=== PATIENT | male | born 1950 | race Hispanic/Latino ===

== ENCOUNTER 2017-04-29 14:06 | Emergency (ER) | payer OTHER ==
[~2017-04-29] VITALS: Ht 157.5 cm; Wt 56.7 kg
[2017-04-29] MEDS ORDERED: INVOKANA PO (14:18)
[2017-04-29] MEDS ORDERED: METFORMIN HCL1000 MG PO (14:18)
[2017-04-29] MEDS ORDERED: LISINOPRIL5 MG PO (14:18)
[2017-04-29] MEDS ORDERED: GLIPIZIDE5 MG PO (14:18)
[2017-04-29] MEDS ORDERED: SIMVASTATIN40 MG (14:18)
--- NOTE | 2017-04-29 15:16 | Diagnostic Imaging Report ---
EXAMINATION: Chest, CHEST 2 VIEWS INDICATION: Pain. COMPARISON: None FINDINGS: LINES: None. Heart: Normal cardiac silhouette. Vascular: The pulmonary vasculature is within normal limits. Atherosclerotic calcifications of the aortic arch. Mediastinum: No mediastinal, hilar, or axillary mass or lymphadenopathy. Lungs: No parenchymal mass. No focal consolidation. Pleura: No pleural effusion. No pneumothorax. Bones: No acute osseous abnormality. Degenerative changes of the thoracic spine. Soft tissues: Normal. Impression: No acute radiographic abnormality. Signed by: Dr. Ramiro Molina M.D. on 04/29/2017 3:13 PM
[2017-04-29 15:19] LABS: BASOPHILS % 0.5 % (0.0-1.0); EOSINOPHILS # (AUTO) 0.1 (0.0-0.4); EOSINOPHILS % 1.8 % (0.0-6.0); HEMATOCRIT 44.1 % (38.2-49.6); HEMOGLOBIN 15.1 g/dL (14.0-18.0); LYMPHOCYTES # (AUTO) 3.2 (1.0-3.2); LYMPHOCYTES % 40.5 % (18.0-39.1); MEAN CORPUSCULAR HEMOGLOBIN 31.7 pg (28-32); MEAN CORPUSCULAR HGB CONC 34.2 g/dL (31-35); MEAN CORPUSCULAR VOLUME 92.5 fL (81-99); MONOCYTES # (AUTO) 0.5 (0.2-0.8); MONOCYTES % 6.4 % (4.4-11.3); NEUTROPHILS % 50.7 % (38.7-80.0); PLATELET COUNT 234 x10e3/uL (140-360); RED BLOOD COUNT 4.77 x10e6/uL (4.3-5.7); RED CELL DISTRIBUTION WIDTH 12.1 % (11.7-14.4)
[2017-04-29 15:31] LABS: INR 0.81; PARTIAL THROMBOPLASTIN TIME 26.7 seconds (23.8-35.5); PROTHROMBIN TIME 11.6 seconds (11.9-14.5)
[2017-04-29 15:40] LABS: BLOOD UREA NITROGEN 19 mg/dL (7-26); BUN/CREATININE RATIO 22 (6-25); CALCIUM 9.2 mg/dL (8.4-10.2); CARBON DIOXIDE 25 mmol/L (22-29); CHLORIDE 104 mmol/L (98-107); CREATINE KINASE 59 IU/L (30-200); CREATININE, SERUM 0.85 mg/dL (0.72-1.25); EST GLOMERULAR FILTRATION RATE > 60 ML/MIN (60-); GLUCOSE 145 mg/dL (74-118); SODIUM 139 mmol/L (136-145)
[2017-04-29] MEDS ORDERED: DEXAMETHASONE SOD PHOS INJ 4 MG/ML VIAL IV ONE (15:45)
[2017-04-29 15:48] LABS: TROPONIN I 0.003 ng/mL (0-0.300)
[2017-04-29 16:30] VITALS: BP 112/73
--- NOTE | 2017-04-29 16:34 | Diagnostic Imaging Report ---
History: Left arm numbness Comparison studies: None Technique: Axial images were obtained from the skull base to the vertex. Coronal and sagittal reconstructions obtained from the axial data. Findings: Scalp/skull: No abnormalities. No fractures, blastic or lytic lesions. Extra-axial spaces: No masses. No fluid collections. Brain sulci: Mildly prominent. Ventricles: Mild compensatory dilatation. No hydrocephalus. Parenchyma: No abnormal densities. No masses, hemorrhage, acute or chronic cortical vascular insults. Sellar/suprasellar region: No abnormalities Craniocervical junction: Patent foramen magnum. No Chiari one malformation. Atherosclerotic calcifications of the carotid siphons. IMPRESSION: No acute abnormalities. Particularly no hemorrhage or acute cortical infarcts. Findings discussed with Dr. Chun at 3:36 PM on 04/29/17. The preliminary report was reviewed and a final report issued by Dr. Baker neuroradiologist on 04/29/2017 at 4:30 PM. Signed by: Dr. Denise Baker M.D. on 04/29/2017 4:30 PM
--- NOTE | 2017-04-29 16:38 | Diagnostic Imaging Report ---
History: Left-sided neck pain Comparison studies: None Technique: Axial images were obtained through the cervical region. Coronal and sagittal images reconstructed from the axial data. Intravenous contrast: None Findings: Airway: Patent. Atlantoaxial articulation: Intact Alignment: Mild reversal of cervical lordosis centered at C4-C5. Cervicomedullary junction: No abnormalities. Patent foramen magnum. Soft tissues: No gross abnormalities. Vertebrae: No fractures, neoplasm or infection. Degenerative changes: C2-C3: Prominent degenerative changes in the right greater than left articular space in between the lateral masses of C1 and C2 with subchondral cyst, sclerosis and marginal osteophytes . C3-4: No spinal canal stenosis. Moderate left foraminal stenosis due to uncovertebral and facet hypertrophy. C4-5: Mild spinal canal stenosis due to posterior disc osteophyte complex. Degenerative intervertebral disc space height loss with endplate sclerosis. Moderate left foraminal stenosis due to uncovertebral joint hypertrophy. C5-6: Mild spinal canal stenosis due to posterior disc osteophyte complex. Moderate left foraminal stenosis due to uncal vertebral joint hypertrophy. C6-7: Patent spinal canal and foramina . C7-T1: Patent spinal canal and foramina . IMPRESSION: 1. No acute fracture or dislocation. 2. Mild degenerative cervical kyphosis centered at C4-C5 where there is severe degenerative intervertebral disc space height loss and endplate sclerosis. 3. Moderate left foraminal stenoses at C3-C4, C4-5, and C5-C6. Findings discussed with Dr. Chun at 3:36 PM on 04/29/17. The preliminary report was reviewed and a final report issued by Dr. Baker neuroradiologist on 04/29/2017 at 4:35 PM. Signed by: Dr. Denise Baker M.D. on 04/29/2017 4:35 PM
== END 2017-04-29 16:42 | disposition home or self-care (01) ==
LOC: ER 14:06
DX: M25.512 Pain in left shoulder (principal); M54.2 Cervicalgia; M54.12 Radiculopathy, cervical region; I10 Essential (primary) hypertension; E11.9 Type 2 diabetes mellitus without complications
CPT/HCPCS: 36415; 70450; 71020; 72125; 80048; 82550; 82553; 84484; 85025; 85610; 85730; 93005; 99284; J1100

== ENCOUNTER → 2017-08-18 | Outpatient (CLI) | payer OTHER ==
[~2017-08-18] MED LIST: GLIPIZIDE5 MG PO; INVOKANA PO; LISINOPRIL5 MG PO; METFORMIN HCL1000 MG PO; SIMVASTATIN40 MG
--- NOTE | 2017-08-18 14:29 | Diagnostic Imaging Report ---
History: Slurred speech for 2 weeks Comparison studies: CT cervical spine 04/29/2017 Technique: Sagittal T1, T2 and IR, axial T2 and axial gradient echo Intravenous contrast: None Findings: Alignment: Straightening of the cervical spine lordosis. No scoliosis. Cervicomedullary junction: No abnormalities. Patent foramen magnum. Soft tissues: Left paraspinal STIR hyperintensity at C3 and C4 Spinal cord: Normal in size and signal from the foramen magnum through T4 Vertebrae: Edema signal at C4-C5 endplates with associated disc degeneration. No fractures, infection or neoplasm. Degenerative changes: C2-C3: Disc degeneration with decreased T2 signal. Right uncinate process and facet hypertrophy results in no significant canal stenosis and mild right foraminal C3-C4: Disc degeneration with decreased T2 signal. Diffuse disc osteophyte complex, bilateral facet and bilateral uncinate process hypertrophy results in mild canal stenosis, mild right and moderate left foraminal narrowing. Trace of fluid is seen at the left facet joint C4-C5: Disc degeneration with decreased T2 signal and decreased intervertebral space. Modic type I changes. Diffuse disc osteophyte complex, bilateral uncinate process and facet hypertrophy results in mild canal stenosis, mild right and severe left foraminal narrowing. C5-C6: Disc degeneration with loss of T2 signal. Diffuse disc osteophyte complex and bilateral uncinate process hypertrophy results in mild canal stenosis, mild right and severe left foraminal narrowing C6-C7: Disc degeneration with loss of T2 signal. Patent canal and foramina C7-T1: No abnormalities. IMPRESSION: 1. Severe degenerative left foraminal narrowing at C4-5 and C5-6. Moderate left foraminal narrowing at C3-4. 2. Facet hypertrophy at the upper cervical spine with synovitis changes and periarticular inflammation at C3-4 on the left side. 3. Diffuse disc degeneration most significant at C4-5 with Modic type I changes at this level. 4. Mild multilevel degenerative stenosis at the upper cervical spine as described above. Signed by: DR Jigar Root M.D. on 08/18/2017 2:26 PM
--- NOTE | 2017-08-18 14:38 | Diagnostic Imaging Report ---
History: Slurred speech Comparison studies: None Technique: Sagittal T2; axial DWI, FLAIR, MPGR, T1, Coronal FLAIR. Intravenous contrast: None Findings: Scalp: Normal in signal . No masses . Bone marrow: Normal in signal intensity. Extra-axial: No masses, no fluid collections. Brain sulci: Appropriate for age. Ventricles: Normal in size . No hydrocephalus . Parenchyma: Scattered small T2/flair hyperintensities of the periventricular and the white matter. Focal gliosis at the right orbitofrontal gyrus, secondary to remote insult No masses, hemorrhage, acute or chronic vascular insults. Suprasellar region: No abnormalities. Craniocervical junction: No abnormalities. Patent foramen magnum. No Chiari one malformation. Vessels: Normal flow-voids in the arteries and sinuses. IMPRESSION: 1. No acute intracranial abnormalities. 2. Mild chronic microvascular ischemic changes of the white matter. Signed by: DR Jigar Root M.D. on 08/18/2017 2:34 PM
== END ==
LOC: CARD 09:49
PROVIDERS: ATTEND Psychiatry & Neurology Clinical Neurophysiology
DX: M54.12 Radiculopathy, cervical region (principal); G45.1 Carotid artery syndrome (hemispheric)
CPT/HCPCS: 70551; 72141; 93880

== ENCOUNTER → 2020-04-13 | Day surgery (SDC) | payer MEDICARE, OTHER ==
[2020-04-08 07:32] LABS: BASOPHILS % 0.4 % (0.0-1.0); EOSINOPHILS # (AUTO) 0.2 (0.0-0.4); EOSINOPHILS % 1.9 % (0.0-6.0); HEMOGLOBIN 14.2 g/dL (14.0-18.0); LYMPHOCYTES # (AUTO) 3.4 (1.0-3.2); LYMPHOCYTES % 43.4 % (18.0-39.1); MEAN CORPUSCULAR HGB CONC 33.8 g/dL (31-35); MEAN CORPUSCULAR VOLUME 91.7 fL (81-99); MONOCYTES # (AUTO) 0.7 (0.2-0.8); MONOCYTES % 9.4 % (4.4-11.3); NEUTROPHILS # (AUTO) 3.5 (2.1-6.9); NEUTROPHILS % 44.6 % (38.7-80.0); PLATELET COUNT 228 x10e3/uL (140-360); RED BLOOD COUNT 4.58 x10e6/uL (4.3-5.7); RED CELL DISTRIBUTION WIDTH 12.2 % (11.7-14.4)
[~2020-04-13] MED LIST changes: +FENTANYL CITRATE/PF 100MCG/2 ML INJ ONE; +HYOSCYAMINE 0.125 MG TAB ONE; +INSULIN REGULAR, HUMAN 100 UNIT/1 ML 3ML VIAL ONE; +LIDOCAINE HCL 2% LOCAL INJ 5 ML SDV VIAL INJ ONE; +LIPITOR10 MG PO; +MIDAZOLAM HCL 2 MG/2 ML VIAL ONE; +PANTOPRAZOLE 40 MG 10ML VIAL ONE; +PROPOFOL IV EMULSION 10 MG/ML 20 ML VIAL ONE
[2020-04-13 15:50] VITALS: BP 117/69
[2020-04-13 17:32] LABS: WBC,FECAL (FECAL LACTOFERRIN) NEGATIVE (NEGATIVE)
[2020-04-14 13:26] LABS: C DIFFICILE TOXIN A&B AMP PROB NEGATIVE (NEGATIVE)
[2020-04-16 06:11] LABS: ENDOMYSIAL ANTIBODIES, IGA Negative (Negative)
== END ==
LOC: OR 11:59
PROVIDERS: ATTEND Internal Medicine Gastroenterology
DX: K51.50 Left sided colitis without complications (principal); D12.5 Benign neoplasm of sigmoid colon; K25.9 Gastric ulcer, unspecified as acute or chronic, without hemorrhage or perforation; K29.70 Gastritis, unspecified, without bleeding; K62.89 Other specified diseases of anus and rectum; K20.90 Esophagitis, unspecified without bleeding; B96.81 Helicobacter pylori [H. pylori] as the cause of diseases classified elsewhere; E11.9 Type 2 diabetes mellitus without complications; I10 Essential (primary) hypertension; Z01.810 Encounter for preprocedural cardiovascular examination; Z01.812 Encounter for preprocedural laboratory examination; Z20.828 Contact with and (suspected) exposure to other viral communicable diseases; Z79.84 Long term (current) use of oral hypoglycemic drugs
CPT/HCPCS: 36415 ×2; 43239; 45380; 45385; 82784; 82948; 83516; 83630; 83993; 85025; 85651; 86140; 86256 ×2; 86671; 87045; 87177; 87328; 87493; 88305; 88312; 93005; C9113; J2001; J2250; J2704; J3010; U0002; 45378; J1817

== ENCOUNTER → 2020-11-23 | Outpatient (CLI) | payer MEDICARE ==
[~2020-11-23] MED LIST changes: -FENTANYL CITRATE/PF 100MCG/2 ML INJ ONE; -HYOSCYAMINE 0.125 MG TAB ONE; -INSULIN REGULAR, HUMAN 100 UNIT/1 ML 3ML VIAL ONE; -LIDOCAINE HCL 2% LOCAL INJ 5 ML SDV VIAL INJ ONE; -MIDAZOLAM HCL 2 MG/2 ML VIAL ONE; -PANTOPRAZOLE 40 MG 10ML VIAL ONE; -PROPOFOL IV EMULSION 10 MG/ML 20 ML VIAL ONE
== END ==
LOC: RAD 16:34
PROVIDERS: ATTEND Internal Medicine
DX: R05 Cough (principal)
CPT/HCPCS: 71046

== ENCOUNTER → 2024-04-20 | Day surgery (SDC) | payer MEDICARE, OTHER ==
[2024-04-18 12:12] LABS: BASOPHILS % 0.4 % (0.0-1.0); EOSINOPHILS # (AUTO) 0.2 (0.0-0.4); EOSINOPHILS % 1.9 % (0.0-6.0); HEMATOCRIT 41.8 % (38.2-49.6); HEMOGLOBIN 13.7 g/dL (14.0-18.0); LYMPHOCYTES # (AUTO) 3.2 (1.0-3.2); LYMPHOCYTES % 39.8 % (18.0-39.1); MEAN CORPUSCULAR HEMOGLOBIN 31.5 pg (28-32); MEAN CORPUSCULAR HGB CONC 32.8 g/dL (31-35); MEAN CORPUSCULAR VOLUME 96.1 fL (81-99); MONOCYTES # (AUTO) 0.7 (0.2-0.8); MONOCYTES % 8.1 % (4.4-11.3); NEUTROPHILS % 49.6 % (38.7-80.0); PLATELET COUNT 233 x10e3/uL (140-360); RED BLOOD COUNT 4.35 x10e6/uL (4.3-5.7); WHITE BLOOD COUNT 8.05 x10e3/uL (4.8-10.8)
[~2024-04-20] MED LIST changes: +FENTANYL CITRATE/PF 100MCG/2 ML INJ ONE; +GLUCAGON FOR INJ 1 MG VIAL ONE; +HYOSCYAMINE SULFATE 0.5 MG/ML INJ ONE; +INSULIN REGULAR, HUMAN 100 UNIT/1 ML ONE; +LIDOCAINE HCL 2% LOCAL INJ 5 ML SDV VIAL INJ ONE; +PROPOFOL IV EMULSION 50 ML IV ONE
[2024-04-20] MEDS: LACTATED RINGER'S 1,000 ML ONE (09:37)
[2024-04-20] MEDS: INSULIN REGULAR, HUMAN 100 UNIT/1 ML IV ONE ×2 (11:02→11:37)
[2024-04-20 11:15] VITALS: BP 129/73; PULSE 83; RESP 16; TEMP 98.2; O2SAT 100
[2024-04-24 08:14] LABS: ENDOMYSIAL ANTIBODIES, IGA Negative (Negative)
[2024-04-24 08:32] LABS: IMMUNOGLOBULIN A 221 mg/dL (61-437); TISSUE TRANSGLUTAMINASE IGA AB <2 U/mL (0-3)
== END | disposition home or self-care (01) ==
LOC: OR 05:00
PROVIDERS: ATTEND Internal Medicine Gastroenterology
DX: K29.50 Unspecified chronic gastritis without bleeding (principal); K63.5 Polyp of colon; B96.81 Helicobacter pylori [H. pylori] as the cause of diseases classified elsewhere; K22.10 Ulcer of esophagus without bleeding; K25.9 Gastric ulcer, unspecified as acute or chronic, without hemorrhage or perforation; K31.89 Other diseases of stomach and duodenum; Z71.3 Dietary counseling and surveillance; R63.4 Abnormal weight loss; I10 Essential (primary) hypertension; E11.9 Type 2 diabetes mellitus without complications; E78.00 Pure hypercholesterolemia, unspecified; L40.9 Psoriasis, unspecified; G62.9 Polyneuropathy, unspecified; Z01.810 Encounter for preprocedural cardiovascular examination; Z01.812 Encounter for preprocedural laboratory examination; Z79.84 Long term (current) use of oral hypoglycemic drugs; Z79.85 Long-term (current) use of injectable non-insulin antidiabetic drugs; Z79.899 Other long term (current) drug therapy
CPT/HCPCS: 36415; 43239; 45380; 82784; 83516; 85025; 86256; 93005; J1610; J1817; J1980; J2003; J2470; J2704; J3010; J7121

== ENCOUNTER 2024-05-17 23:11 | Emergency (ER) | payer MEDICARE ==
[~2024-05-17] VITALS: Ht 152.4 cm; Wt 53.5 kg
[~2024-05-17 23:11] MED LIST changes: -FENTANYL CITRATE/PF 100MCG/2 ML INJ ONE; -GLUCAGON FOR INJ 1 MG VIAL ONE; -HYOSCYAMINE SULFATE 0.5 MG/ML INJ ONE; -INSULIN REGULAR, HUMAN 100 UNIT/1 ML ONE; -LIDOCAINE HCL 2% LOCAL INJ 5 ML SDV VIAL INJ ONE; -PROPOFOL IV EMULSION 50 ML IV ONE
[2024-05-17 23:13] VITALS: TEMP 98.7
[2024-05-17 23:39] LABS: BASOPHILS % 0.2 % (0.0-1.0); EOSINOPHILS # (AUTO) 0.1 (0.0-0.4); EOSINOPHILS % 0.8 % (0.0-6.0); HEMOGLOBIN 11.4 g/dL (14.0-18.0); LYMPHOCYTES # (AUTO) 1.8 (1.0-3.2); LYMPHOCYTES % 20.4 % (18.0-39.1); MEAN CORPUSCULAR HEMOGLOBIN 31.5 pg (28-32); MEAN CORPUSCULAR HGB CONC 32.6 g/dL (31-35); MEAN CORPUSCULAR VOLUME 96.7 fL (81-99); MONOCYTES # (AUTO) 0.7 (0.2-0.8); MONOCYTES % 7.4 % (4.4-11.3); NEUTROPHILS # (AUTO) 6.3 (2.1-6.9); NEUTROPHILS % 70.9 % (38.7-80.0); PLATELET COUNT 231 x10e3/uL (140-360); RED BLOOD COUNT 3.62 x10e6/uL (4.3-5.7); RED CELL DISTRIBUTION WIDTH 11.9 % (11.7-14.4); WHITE BLOOD COUNT 8.87 x10e3/uL (4.8-10.8)
[2024-05-18 00:05] LABS: ALBUMIN 2.6 g/dL (3.5-5.0); ALBUMIN/GLOBULIN RATIO 0.7 (0.8-2.0); ANION GAP 16.6 mmol/L (8-16); BILIRUBIN,TOTAL 0.4 mg/dL (0.2-1.2); CALCIUM 8.3 mg/dL (8.4-10.2); CREATININE, SERUM 1.29 mg/dL (0.72-1.25); POTASSIUM 4.6 mmol/L (3.5-5.1); TOTAL PROTEIN 6.2 g/dL (6.5-8.1)
[2024-05-18 00:22] LABS: CORONAVIRUS COVID-19 AG NEGATIVE (NEGATIVE); INFLUENZA A AG NEGATIVE (NEGATIVE); INFLUENZA B AG NEGATIVE (NEGATIVE)
[2024-05-18] MEDS: INSULIN REGULAR, HUMAN 100 UNIT/1 ML SQ ONE (00:28)
[2024-05-18] MEDS: ASPIRIN 81 MG CHEW TAB PO ONE (00:28)
[2024-05-18] MEDS: FUROSEMIDE INJ 10 MG/ML 2 ML VIAL IV ONE (00:32)
[2024-05-18 01:03] LABS: ABG HCO3 21 mmol/L (22-26); ABG PCO2 35 mmHg (35-45); ABG PO2 61 mmHg (80-105); ABG TCO2 22
[2024-05-18 02:00] VITALS: PULSE 87; RESP 21; O2SAT 94
[2024-05-18 08:32] LABS: ABG HCO3 21 mmol/L (22-26); ABG PCO2 35 mmHg (35-45); ABG PO2 61 mmHg (80-105); ABG TCO2 22
== END 2024-05-18 02:12 | disposition other institution (70) ==
LOC: ER 23:23
DX: R07.9 Chest pain, unspecified (principal); I21.4 Non-ST elevation (NSTEMI) myocardial infarction; E11.65 Type 2 diabetes mellitus with hyperglycemia; I10 Essential (primary) hypertension; E78.5 Hyperlipidemia, unspecified; Z11.52 Encounter for screening for COVID-19; R94.31 Abnormal electrocardiogram [ECG] [EKG]
CPT/HCPCS: 36415; 36600; 71045; 80053; 82805; 82948; 83880; 84484; 85025; 87428; 93005; 99284; J1940